=== PATIENT | male | born 1990 | race Hispanic/Latino ===

== ENCOUNTER 2021-02-27 09:50 | Emergency (ER) | payer SELFPAY ==
[2021-02-27] MEDS ORDERED: SODIUM CHLORIDE 0.9% 1000 ML 1,000 ML IV ONE (10:23)
[2021-02-27] MEDS ORDERED: ONDANSETRON 4 MG/2 ML INJ IV ONE (10:23)
[2021-02-27] MEDS ORDERED: PANTOPRAZOLE 40 MG INJ IV ONE (10:24)
--- NOTE | 2021-02-27 10:28 | Emergency Department Report ---
ED N/V/D HPI - General Chief complaint: Abdominal Pain Stated complaint: VOMITING FEW DAYS PUI?: No Time Seen by Provider: 02/27/21 10:16 Source: patient Mode of arrival: Ambulatory Limitations: No Limitations - History of Present Illness Initial comments: Chief complaint: "I just need to make sure I do not have appendicitis. I feel like crap." HPI: This is a 30-year-old male with history of Klippel-Feil Syndrome who presents with fever lower abdominal pain vomiting diarrhea for the past 3 days. Patient's PCP evaluated him on yesterday. She recommended evaluation in emergency department to rule out appendicitis. He felt that he just had a stomach bug. However due to severe pain and persistent symptoms he wanted to make sure that he did not have appendicitis. He plans to travel to [place] with his daughter for the weekend. He wanted to make sure he was okay. Patient has subjective fever yesterday. Severe crampy bilateral lower quadrant pain in abdomen. Positive diarrhea and vomiting without hematemesis or hematochezia. MD complaint: nausea, vomiting, diarrhea, abdominal pain -: Gradual, days(s) (3 days) Description of Vomiting: food contents Description of Diarrhea: water Associated Abdominal Pain: Yes Location: LLQ, RLQ Radiation: none Severity: moderate Pain Scale: 7 Quality: cramping Consistency: constant Improves with: none Worsens with: none Context: possible food poisoning Associated Symptoms: other (Subjective fever) - Related Data Home Medications Medication Instructions Recorded Confirmed Last Taken No Known Home Medications [No 11/11/15 11/11/15 Unknown Reported Home Medications] Allergies Allergy/AdvReac Type Severity Reaction Status Date / Time cefaclor [From [facility]] Allergy Unknown Verified 11/11/15 08:04 ED Review of Systems ROS: Stated complaint: VOMITING FEW DAYS Other details as noted in HPI Comment: All other systems reviewed and negative Constitutional: fever, malaise ENT: denies: throat pain Respiratory: denies: cough, shortness of breath Cardiovascular: denies: chest pain Gastrointestinal: abdominal pain, nausea, vomiting, diarrhea ED Past Medical Hx - Past Medical History Previous Medical History?: Yes Additional medical history: KLIPPEL-FEIL SYNDROME - Surgical History Past Surgical History?: Yes Additional Surgical History: CERVICAL FUSION WITH BONE GRAFT. TONSILLECTOMY. TUBES IN EARS (MULT TIMES). Hernia surgery - Social History Smoking Status: Current Every Day Smoker Substance Use Type: Alcohol, Marijuana - Medications Home Medications: Home Medications Medication Instructions Recorded Confirmed Last Taken Type No Known Home Medications [No 11/11/15 11/11/15 Unknown History Reported Home Medications] ED Physical Exam - General Limitations: No Limitations General appearance: alert, in no apparent distress - Head Head exam: Present: atraumatic, normocephalic - Eye Eye exam: Present: normal appearance - ENT ENT exam: Present: mucous membranes moist - Neck Neck exam: Present: normal inspection, full ROM - Respiratory Respiratory exam: Present: normal lung sounds bilaterally. Absent: respiratory distress, wheezes, rales, rhonchi - Cardiovascular Cardiovascular Exam: Present: regular rate, normal rhythm, normal heart sounds. Absent: systolic murmur, diastolic murmur, rubs, gallop - GI/Abdominal GI/Abdominal exam: Present: soft, tenderness, guarding, other (Right lower quadrant left lower quadrant tenderness with voluntary guarding). Absent: distended, rebound - Rectal Rectal exam: Present: deferred - Extremities Exam Extremities exam: Present: normal inspection - Back Exam Back exam: Present: normal inspection - Neurological Exam Neurological exam: Present: alert, oriented X3 - Psychiatric Psychiatric exam: Present: normal affect, normal mood - Skin Skin exam: Present: warm, dry, intact, normal color. Absent: rash ED Course Vital Signs 02/27/21 10:01 Temperature 98.4 F Pulse Rate 69 Respiratory 18 Rate Blood Pressure 108/72 [Right] O2 Sat by Pulse 99 Oximetry ED Medical Decision Making - Lab Data Result diagrams: 02/27/21 10:13 02/27/21 10:13 - Radiology Data Radiology results: report reviewed Patient Name: LESLIE LUNA Gender: Male Date of : 1990 Referring Provider: KVNG DALLAS Organization: [facility] Accession Number: [id number] Requested Date: February 27, 2021 10:23 Report Status: Final Requested Procedure: 1 Procedure Description: CT abdomen pelvis w con Modality: CT Findings Reporting MD: Kain Haney Dictation Time: February 27, 2021 10:50 Staff Counsel: Not available Sleep Scientist Date: CT ABDOMEN AND PELVIS WITH CONTRAST INDICATION / CLINICAL INFORMATION: Severe lower abdominal pain fever OMNI 300 100ML . TECHNIQUE: Axial CT images were obtained through the abdomen and pelvis after IV contrast. All CT scans at this location are performed using CT dose reduction for ALARA by means of automated exposure control. COMPARISON: None available. FINDINGS: LOWER CHEST: No significant abnormality. LIVER: No significant abnormality. GALLBLADDER: No significant abnormality. BILE DUCTS: No significant abnormality. PANCREAS: No significant abnormality. SPLEEN: No significant abnormality. ADRENALS: No significant abnormality. RIGHT KIDNEY / URETER: No significant abnormality. LEFT KIDNEY / URETER: No significant abnormality. STOMACH / SMALL BOWEL: Fluid-filled, nondilated loops of mid to distal small bowel. No obstruction. COLON: No significant abnormality. APPENDIX: The appendix is normal in caliber with mild mucosal enhancement. No periappendiceal inflammation. PERITONEUM: No free fluid. No free air. No fluid collection. LYMPH NODES: No significant adenopathy. AORTA / ARTERIES: No significant abnormality. IVC / VEINS: No significant abnormality. URINARY BLADDER: No significant abnormality. REPRODUCTIVE ORGANS: No significant abnormality. ADDITIONAL FINDINGS: None. SKELETAL SYSTEM: No significant abnormality. IMPRESSION: 1. Fluid-filled, nondilated loops of small bowel could represent enteritis. 2. Normal-sized appendix with mild mucosal enhancement could also potentially be related to enteritis. Signer Name: Kain Haney MD Signed: 02/27/2021 10:50 AM Workstation Name: [email or web address] - Medical Decision Making Acute gastroenteritis: Appendicitis ruled out with CT scan. Patient given return precautions such as severe localized pain. Due to persistent symptoms patient will benefit from antibiotics. Patient was prescribed antibiotics and antiemetic by his PCP. He has been able to tolerate the antibiotics. I encouraged him to purchase antidiarrheal medication [id number]. He is discharged home. CBC chemistry within normal limits. Critical care attestation.: If time is entered above; I have spent that time in minutes in the direct care of this critically ill patient, excluding procedure time. ED Disposition Clinical Impression: Acute gastroenteritis, Food poisoning Disposition: DC-01 TO HOME OR SELFCARE Is pt being admited?: No Does the pt Need Aspirin: No Condition: Stable Instructions: Food Poisoning Additional Instructions: Please return the ER if you develop severe localized pain or any new symptoms.
[2021-02-27 11:04] LABS: Alanine Aminotransferase 26 units/L (7-56); Albumin 4.5 g/dL (3.9-5); BUN/Creatinine Ratio 18; Blood Urea Nitrogen 16 mg/dL (9-20); Calcium 9.4 mg/dL (8.4-10.2); Hemolysis Index 1
[2021-02-27 11:50] LABS: Basophils % (Auto) 0.1 % (0.0-1.8); Eosinophils % (Auto) 0.4 % (0.0-4.3); Lymphocytes # (Auto) 0.8 K/mm3 (1.2-5.4); Lymphocytes % (Auto) 9.5 % (13.4-35.0); Mean Corpuscular HGB Conc 33 % (32-34); Mean Corpuscular Volume 84 fl (84-94); Monocytes # (Auto) 0.7 K/mm3 (0.0-0.8); Monocytes % (Auto) 9.2 % (0.0-7.3); Platelet Count 215 K/mm3 (140-440); Red Blood Count 4.99 M/mm3 (3.65-5.03); Red Cell Distribution Width 17.5 % (13.2-15.2)
--- NOTE | 2021-02-27 11:55 | Cat Scan Report ---
CT ABDOMEN AND PELVIS WITH CONTRAST INDICATION / CLINICAL INFORMATION: Severe lower abdominal pain fever OMNI 300 100ML . TECHNIQUE: Axial CT images were obtained through the abdomen and pelvis after IV contrast. All CT sc ans at this location are performed using CT dose reduction for ALARA by means of automated exposure c ontrol. COMPARISON: None available. FINDINGS: LOWER CHEST: No significant abnormality. LIVER: No significant abnormality. GALLBLADDER: No significant abnormality. BILE DUCTS: No significant abnormality. PANCREAS: No significant abnormality. SPLEEN: No significant abnormality. ADRENALS: No significant abnormality. RIGHT KIDNEY / URETER: No significant abnormality. LEFT KIDNEY / URETER: No significant abnormality. STOMACH / SMALL BOWEL: Fluid-filled, nondilated loops of mid to distal small bowel. No obstruction. COLON: No significant abnormality. APPENDIX: The appendix is normal in caliber with mild mucosal enhancement. No periappendiceal inflamm ation. PERITONEUM: No free fluid. No free air. No fluid collection. LYMPH NODES: No significant adenopathy. AORTA / ARTERIES: No significant abnormality. IVC / VEINS: No significant abnormality. URINARY BLADDER: No significant abnormality. REPRODUCTIVE ORGANS: No significant abnormality. ADDITIONAL FINDINGS: None. SKELETAL SYSTEM: No significant abnormality. IMPRESSION: 1. Fluid-filled, nondilated loops of small bowel could represent enteritis. 2. Normal-sized appendix with mild mucosal enhancement could also potentially be related to enteritis . Signer Name: Kain Haney MD Signed: 02/27/2021 11:50 AM Workstation Name: [id number]
[2021-02-27 12:49] VITALS: BP 127/89
== END 2021-02-27 12:49 | disposition home or self-care (01) ==
LOC: ED 09:50
DX: K52.9 Noninfective gastroenteritis and colitis, unspecified (principal); A05.9 Bacterial foodborne intoxication, unspecified; F17.200 Nicotine dependence, unspecified, uncomplicated; F12.90 Cannabis use, unspecified, uncomplicated; Z88.8 Allergy status to other drugs, medicaments and biological substances; Z98.890 Other specified postprocedural states
CPT/HCPCS: 36415; 74177; 80053; 83690; 85025; 96361; 96374; 96375; 99284; C9113; J2405; J7030; Q9967